=== PATIENT | female | born 1990 | race African-American/Black ===

== ENCOUNTER 2016-10-05 18:31 | Emergency (ER) | payer OTHER ==
[~2016-10-05] VITALS: Ht 170.2 cm; Wt 49.0 kg
[2016-10-05 18:40] VITALS: BP 97/55
[2016-10-05] MEDS ORDERED: vitamins (18:43)
== END 2016-10-05 23:00 | disposition left against medical advice (07) ==
LOC: ER 18:53
DX: O20.9 Hemorrhage in early pregnancy, unspecified (principal); Z53.21 Procedure and treatment not carried out due to patient leaving prior to being seen by health care provider

== ENCOUNTER 2018-05-15 23:58 | Emergency (ER) | payer MEDICAID, OTHER ==
[~2018-05-15] VITALS: Ht 170.2 cm; Wt 42.0 kg
[~2018-05-15 23:58] MED LIST: vitamins
[2018-05-16 00:24] VITALS: BP 98/60
== END 2018-05-16 04:42 | disposition left against medical advice (07) ==
LOC: ER 23:58
DX: Z53.21 Procedure and treatment not carried out due to patient leaving prior to being seen by health care provider (principal)

== ENCOUNTER 2019-06-04 20:25 | Emergency (ER) | payer MEDICAID ==
[~2019-06-04] VITALS: Ht 170.2 cm; Wt 49.0 kg
[2019-06-04 20:34] VITALS: BP 139/79
== END 2019-06-04 20:56 | disposition left against medical advice (07) ==
LOC: ER 20:25
DX: R07.89 Other chest pain (principal); Z53.21 Procedure and treatment not carried out due to patient leaving prior to being seen by health care provider
CPT/HCPCS: 93005